=== PATIENT | female | born 1985 | race Two or more races ===

== ENCOUNTER → 2020-03-08 | Outpatient (CLI) | payer OTHER ==
--- NOTE | 2020-03-08 14:25 | RADIOLOGY REPORT (SQ) ---
EXAM DESCRIPTION: MRI ORBIT/FACIAL/NECK WITHOUT IMAGES COMPLETED DATE/TIME: 03/08/2020 11:28 am REASON FOR STUDY: R22.1 LOCALIZED SWELLING, MASS AND LUMP, NECK R22.1 LOCALIZED SWELLING, MASS AND LUMP, NECK COMPARISON: None. TECHNIQUE: Multiplanar multisequence imaging of the soft tissues of the neck performed without contr ast. All images stored on PACS. LIMITATIONS: None. FINDINGS: There is a marker in the area of interest posterior to the right year. There is a 10 mm n on fat containing nodule in the subcutaneous tissues corresponding to the marker location. Small arachnoid cyst left middle cranial fossa of no clinical significance. Remainder of the study i s normal. IMPRESSION: Dermatologic lesion posterior to the right ear. No involvement of deeper structures. COMMENT: Potentially amenable to ultrasound-guided FNA however small size makes inadequate tissue sa mpling a possibility. Serial ultrasound follow-up to assess stability might be considered. TECHNICAL DOCUMENTATION: JOB ID: [id number] 2010 [employer] All Rights Reserved Reading location - IP/workstation name: [email or web address]
== END ==
LOC: RAD 10:38
PROVIDERS: ATTEND Nurse Practitioner Family
DX: R22.1 Localized swelling, mass and lump, neck (principal)
CPT/HCPCS: 70540